=== PATIENT | male | born 1985 | race Caucasian/White ===

== ENCOUNTER 2016-08-31 21:44 | Emergency (ER) | payer SELFPAY ==
[2016-08-31 21:48] VITALS: BP 140/78
--- NOTE | 2016-08-31 22:13 | ER Document Report ---
ED Medical Screen (RME) - General Stated Complaint: RIGHT ARM PAIN Time seen by provider: 22:11 Mode of Arrival: Ambulatory Information source: Patient Notes: 31-year-old male presents to ED for a abscess to the right forearm. The abscess started small Monday night today is when the arms started swelling the abscess started draining today. He has a history of MRSA. I have greeted and performed a rapid initial assessment of this patient. A comprehensive ED assessment and evaluation of the patient, analysis of test results and completion of medical decision making process will be conducted by an additional ED providers. Physical Exam - Vital signs Vitals: Temp Pulse Resp BP Pulse Ox 98.4 F 92 16 140/78 H 97 08/31/16 21:47 08/31/16 21:47 08/31/16 21:47 08/31/16 21:47 08/31/16 21:47 Course - Vital Signs Vital signs: Temp Pulse Resp BP Pulse Ox 98.4 F 92 16 140/78 H 97 08/31/16 21:47 08/31/16 21:47 08/31/16 21:47 08/31/16 21:47 08/31/16 21:47
== END 2016-09-01 00:40 | disposition left against medical advice (07) ==
LOC: ER 21:44
DX: L02.413 Cutaneous abscess of right upper limb (principal); Z86.14 Personal history of Methicillin resistant Staphylococcus aureus infection; Z53.20 Procedure and treatment not carried out because of patient's decision for unspecified reasons
CPT/HCPCS: 87070; 87075; 87077; 87186; 87205; 99281